=== PATIENT | male | born 1965 | race African-American/Black ===

== ENCOUNTER → 2017-01-26 | Outpatient (CLI) | payer BC, OTHER ==
[~2017-01-26] MED LIST: ASP81TEC PO; CARV12.52 PO; GADOBUTROL 10 MMOL/10 ML (GADAVIST) VIAL IV ONE; LISI10TA PO; METR500T21 PO; PNT40TEC PO; SULF-222 PO; SULF1TAB38 PO
[2017-01-26 17:29] LABS: ALANINE AMINOTRANSFERASE 27 U/L (0-55); ANION GAP 7 MMOL/L (5-14); ASPARTATE AMINO TRANSFERASE 24 U/L (5-34); BILIRUBIN,TOTAL 0.4 MG/DL (0.1-1.0); BLOOD UREA NITROGEN 16 MG/DL (7-18); BUN/CREATININE RATIO 14; CALCIUM 9.2 MG/DL (8.5-10.1); CARBON DIOXIDE 29 MMOL/L (21-32); CHLORIDE 104 MMOL/L (98-107); CREATININE SERUM 1.17 MG/DL (0.60-1.30); GFR ESTIMATED > 60; GLUCOSE 91 MG/DL (70-105); POTASSIUM 4.1 MMOL/L (3.6-5.0); SODIUM 140 MMOL/L (135-145); TOTAL PROTEIN 7.8 GM/DL (6.4-8.2)
--- NOTE | 2017-01-26 18:31 | Diagnostic Imaging Report ---
PROCEDURE: MR imaging abdomen with and without contrast. TECHNIQUE: Multiplanar, multisequence MR imaging of the abdomen was performed with and without contrast. INDICATION: Possible renal mass on recent testing CT scan at an outside clinic in [place]. Patient has Chuck filter in place. FINDINGS: Pre and postcontrast MRI imaging of the abdomen demonstrates a cyst off the superior pole of the left kidney. No solid mass is present. There is no hydronephrosis, ascites or pleural effusions. The liver, spleen, pancreas and adrenal glands appear normal. No abnormal adenopathy is present. Normal signal intensity is seen within the bone marrow. Artifact is present in the IVC from a filter. IMPRESSION: There is a 2.5 x 2.1 cm lesion off of the upper pole of the left kidney which has mainly fluid within this. This has a little bit of inhomogeneity and it is probably proteinaceous cyst. The miguel are slightly irregular. Recommend 6-month followup with CT scan. Dictated by: Dictated on workstation # [id number]
== END ==
LOC: RAD 16:41
PROVIDERS: ATTEND Nurse Practitioner Family
DX: N28.89 Other specified disorders of kidney and ureter (principal)
CPT/HCPCS: 36415; 74183; 80053

== ENCOUNTER 2018-07-16 07:05 | Emergency (ER) | payer BC ==
[~2018-07-16] VITALS: Ht 170.2 cm; Wt 102.1 kg
[~2018-07-16 07:05] MED LIST changes: -GADOBUTROL 10 MMOL/10 ML (GADAVIST) VIAL IV ONE; +METR-145 PO; -METR500T21 PO
--- NOTE | 2018-07-16 08:00 | NUR ---
PT STATES WILL TAKE B/P MEDS WHEN GETS HOME
[2018-07-16] MEDS ORDERED: SULF1TAB35 PO (08:03)
--- NOTE | 2018-07-16 08:03 | ED Integumentary General ---
General Chief Complaint: Skin/Wound Problems Stated Complaint: FINGER LAC Nursing Triage Note: PT STATES FELL LAST PM AND HAS ABRASION ON L 4TH FINGER FROM CEMENT, DENIES HITTING HEAD, STATES HAS KEPT OOZING BLOOD SINCE Source: patient Exam Limitations: no limitations History of Present Illness Date Seen by Provider: Jul 16, 2018 Time Seen by Provider: 07:39 Initial Comments Patient presents to ER by private conveyance ambulating and with chief complaint that he fell last night around midnight and scraped the cuticle on his left hand fourth digit distal phalanx. He couldn't get it stopped bleeding and is continues to ooze she's been using compression and elevation. He is on aspirin but does not take any Eliquis anymore after he got his IVC filter implanted for history of clots. Patient says that his shoulder got hurt in the fall yesterday but does not want to take as he thinks it will heal fine. He denies striking his head or loss of consciousness. He does drink alcohol. The patient is right-handed. Allergies and Home Medications Allergies Coded Allergies: No Known Drug Allergies (Unverified , 08/10/11) Home Medications Aspirin 81 Mg Tabec, 81 MG PO DAILY, (Reported) Carvedilol 12.5 Mg Tablet, 12.5 MG PO BID, (Reported) Lisinopril 10 Mg Tablet, 10 MG PE PO DAILY, (Reported) Pantoprazole Sod 40 Mg Tab, 40 MG PO DAILY, (Reported) Patient Home Medication List Home Medication List Reviewed: Yes Review of Systems Review of Systems Constitutional: No chills, No malaise EENTM: No ear pain, No eye pain Respiratory: No cough, No short of breath Cardiovascular: No chest pain, No edema Gastrointestinal: No abdominal pain, No constipation, No diarrhea Genitourinary: No discharge, No dysuria Musculoskeletal: No back pain, No joint pain Past Tftoaat-Lsfuog-Wjcepr Hx Patient Social History Alcohol Use: Rarely Uses Number of Drinks Today: 2 Alcohol Beverage of Choice: Beer, Whiskey Recreational Drug Use: No Smoking Status: Never a Smoker Recent Foreign Travel: No Contact w/Someone Who Travel: No Recent Infectious Disease Expo: No Recent Hopitalizations: No Immunizations Up To Date Tetanus Booster (TDap): Less than 5yrs Past Medical History Surgeries: Yes (MARTINE FILTER) Respiratory: No Cardiac: Yes Hypertension Gastrointestinal: No Musculoskeletal: Yes (DVT) Endocrine: No Cancer: No Psychosocial: No Physical Exam Vital Signs Vital Signs - First Documented 07/16/18 07:40 Temp 97.4 Pulse 93 Resp 18 B/P (MAP) 145/111 (122) Pulse Ox 96 Capillary Refill : Less Than 3 Seconds General Appearance: WD/WN, no apparent distress HEENT: PERRL/EOMI, normal ENT inspection, pharynx normal Cardiovascular: normal peripheral pulses, regular rate, rhythm, no edema Respiratory: no respiratory distress, no accessory muscle use Extremities: normal capillary refill, other (left hand fourth digit distal phalanx dorsal side has a 1 cm x 1 cm square abrasion where the skin has been scraped off with a slow ooze.) Progress/Results/Core Measures Results/Orders Vital Signs/I&O 07/16/18 07:40 Temp 97.4 Pulse 93 Resp 18 B/P (MAP) 145/111 (122) Pulse Ox 96 Blood Pressure Mean: 122 Progress Progress Note : Time: 07:59 Progress Note Cleaned thoroughly with chlorhexidine soap water and offered a tetanus shot but he's up-to-date. We then put a turnicot on for less than 1 minute and, clean the wound and applied 2 layers of cyanoacrylate. Wound was hemostatic. Departure Impression Primary Impression: Fall Qualified Codes: W19.XXXA - Unspecified fall, initial encounter Additional Impressions: Left shoulder pain Qualified Codes: M25.512 - Pain in left shoulder Abrasion of left ring finger, initial encounter Disposition: 01 HOME, SELF-CARE Condition: Stable Departure-Patient Inst. Decision time for Depature: 08:01 Referrals: NAREN DRAPER MD (PCP/Family) Primary Care Physician Patient Instructions: Skin Abrasions (DC) Add. Discharge Instructions: It's okay to wash your hands or shower today but wait 24-48 hours before you submerse your hands to wash dishes or anything along those lines. You may use the antibiotics for 3 days to prevent infection in your hand. All discharge instructions reviewed with patient and/or family. Voiced understanding. Scripts Sulfamethoxazole/Trimethoprim (Bactrim Ds Tablet) 1 Each Tablet 1 EACH PO BID for 3 Days, #6 TAB 0 Refills Prov: TAMI MERRILL 07/16/18 TAMI MERRILL Jul 16, 2018 08:03
[2018-07-16 08:06] VITALS: BP 145/111
== END 2018-07-16 08:08 | disposition home or self-care (01) ==
LOC: EDUNIT# 07:05 → ER 07:06
DX: S60.415A Abrasion of left ring finger, initial encounter (principal); M25.512 Pain in left shoulder; I10 Essential (primary) hypertension; Z95.828 Presence of other vascular implants and grafts; Z79.82 Long term (current) use of aspirin; Z86.718 Personal history of other venous thrombosis and embolism; W19.XXXA Unspecified fall, initial encounter
CPT/HCPCS: 12041

== ENCOUNTER 2021-12-16 05:46 | Outpatient (CLI) | payer BC ==
[~2021-12-16] VITALS: Ht 170.2 cm; Wt 95.3 kg
[2021-12-16] MEDS ORDERED: MTP25TSR PO (15:30)
[2021-12-16] MEDS ORDERED: LORA10CA PO (15:30)
[2021-12-16] MEDS ORDERED: TADA5TAB2 PO (15:30)
[2021-12-16] MEDS ORDERED: MULT-1056 PO (15:30)
[2021-12-16] MEDS ORDERED: OMG1KC PO (15:30)
== END 2021-12-16 15:36 | disposition home or self-care (01) ==
LOC: PREOP 05:46
PROVIDERS: ATTEND Surgery
DX: Z01.818 Encounter for other preprocedural examination (principal)

== ENCOUNTER 2021-12-29 10:28 | Day surgery (SDC) | payer BC ==
[~2021-12-29] VITALS: Ht 170.2 cm; Wt 95.3 kg
[~2021-12-29 10:28] MED LIST changes: +LORA10CA PO; +MTP25TSR PO; +MULT-1056 PO; +OMG1KC PO; +TADA5TAB2 PO
[2021-12-29] MEDS ORDERED: LACTATED RINGERS 1,000 ML IV STA (10:32)
[2021-12-29 10:40] VITALS: BP 158/97
[2021-12-29] MEDS ORDERED: LACTATED RINGERS 1,000 ML IV ONE (10:43)
[2021-12-29] MEDS ORDERED: HURRICAINE EXT TUBE (BENZOCAINE) XX PRN (10:45)
[2021-12-29] MEDS ORDERED: PROPOFOL INJECTION 50 ML IV ONE (12:35)
--- NOTE | 2021-12-29 13:26 | Discharge Inst-Simple/Standard ---
Discharge Inst-Standard Patient Instructions/Follow Up Plan of Care/Instructions/FU: 2 weeks Timmy Activity as Tolerated: Yes Discharge Diet: Regular Diet FIDENCIO RUIZ DO Dec 29, 2021 13:26
--- NOTE | 2021-12-29 13:28 | Anesthesia-General Post-Op ---
MAC Patient Condition Mental Status/LOC: Same as Preop Cardiovascular: Satisfactory Nausea/Vomiting: Absent Respiratory: Satisfactory Pain: Controlled Complications: Absent Post Op Complications Complications None Follow Up Care/Instructions Patient Instructions None needed. Anesthesiology Discharge Order Discharge Order Patient is doing well, no complaints, stable vital signs, no apparent adverse anesthesia problems. No complications reported per nursing. KENNEY DIGGS CRNA Dec 29, 2021 13:27
[2021-12-29 13:33] VITALS: BP 125/73
[2021-12-29 13:40] VITALS: BP 125/73
[2021-12-29 14:00] VITALS: BP 125/73
--- NOTE | 2021-12-29 21:55 | OPERATIVE REPORT ---
DATE OF SERVICE: 12/29/2021 PREOPERATIVE DIAGNOSES: History of gastric ulcer, screening colonoscopy. POSTOPERATIVE DIAGNOSES: Small hiatal hernia, reflux esophagitis, normal colon. PROCEDURE: EGD with biopsies, colonoscopy. 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 ESTIMATED BLOOD LOSS: None. COMPLICATIONS: None. INDICATIONS: The patient is a 56-year-old male with history of ulcer and also needing screening colonoscopy. He understands risks and benefits of procedure and wishes to proceed. Consent was signed in the chart. DESCRIPTION OF PROCEDURE: The patient was taken to the endoscopy suite, placed in left lateral recumbent position. Timeout was performed. Scope was inserted in mouth, down the esophagus, stomach and into the duodenum without difficulty. No polyps, masses or ulcerations in the duodenum. Scope was slowly retracted back into the stomach where it was further insufflated. No polyps, masses or ulcerations. Biopsy of the antrum was obtained. Scope was retroflexed noting a small hiatal hernia, no other pathology. Scope was returned to its normal position, slowly withdrawn until the distal esophagus, some slight reflux esophagitis. Biopsy of GE junction was obtained. Scope was slowly retracted back until completely removed noting no other pathology. Digital rectal exam was performed. No palpable polyps, masses or ulcerations. Scope was inserted in the rectum and advanced all the way to cecum with minimal difficulty. Prep was adequate. Scope was slowly retracted back. No polyps, masses or ulcerations in the cecum, ascending, transverse, descending, sigmoid colon. Once in the rectum, scope was retroflexed noting no other pathology. Scope was returned to its normal position, slowly withdrawn until completely removed. The patient tolerated procedure well without complications and taken to the recovery room in stable condition. RECOMMENDATIONS: The patient will need repeat colonoscopy in 10 years unless family history of colon cancer or personal history of polyps, which would then be 5 years. The patient to continue on current medications. Any issues before that be seen at that time. He will follow up in the office in two weeks to discuss pathology results and if we need to make any medication changes, we will do so at that time. Job ID: [id number] DocumentID: [id number] Dictated Date: 12/29/2021 13:28:55 Host/Hostess Ground Date: 12/29/2021 21:53:48 Dictated By: FIDENCIO WARNER DO [facility]
== END 2021-12-29 14:18 | disposition home or self-care (01) ==
LOC: ENDO 10:28
PROVIDERS: ATTEND Surgery
DX: Z12.11 Encounter for screening for malignant neoplasm of colon (principal); K21.00 Gastro-esophageal reflux disease with esophagitis, without bleeding; K44.9 Diaphragmatic hernia without obstruction or gangrene; K29.70 Gastritis, unspecified, without bleeding; E66.9 Obesity, unspecified; Z68.32 Body mass index [BMI] 32.0-32.9, adult; Z79.899 Other long term (current) drug therapy; Z79.82 Long term (current) use of aspirin; Z87.11 Personal history of peptic ulcer disease

== ENCOUNTER → 2022-07-26 | Outpatient (CLI) | payer BC ==
--- NOTE | 2022-07-26 17:34 | Diagnostic Imaging Report ---
PROCEDURE: US Scrotum. TECHNIQUE: Multiple real-time grayscale images were obtained over the scrotum in various projections bilaterally. INDICATION: Scrotal mass Right testicle measures 4.6 x 2.1 x 2.6 cm. The testes has normal blood flow and echogenicity. There is a 3 cm cyst within the testes. There are several cysts in the epididymis. Largest of these is in the l head that measures 2.2 cm in diameter. There are some additional epididymal cysts hat measure 1 to 3 mm in diameter. There is no hydrocele or varicocele on the right. Left testicle measures 4.8 x 1.9 x 2.7 cm. There is normal echogenicity and blood flow. There is no varicocele or hydrocele. Epididymis appears normal. IMPRESSION: Several epididymal cysts on the right largest measuring 2.2 cm in diameter. Dictated by: Dictated on workstation # [id number]
== END ==
LOC: RAD 12:01
PROVIDERS: ATTEND Internal Medicine
DX: N50.3 Cyst of epididymis (principal)
CPT/HCPCS: 76870

== ENCOUNTER 2022-10-08 05:31 | Outpatient (CLI) | payer BC ==
[~2022-10-08] VITALS: Ht 170.2 cm; Wt 77.3 kg
[2022-10-08] MEDS ORDERED: HYDR25TA4 PO (09:05)
[2022-10-08] MEDS ORDERED: AMLO-250 PO (09:05)
== END 2022-10-08 10:16 | disposition home or self-care (01) ==
LOC: PREOP 05:31
PROVIDERS: ATTEND Surgery
DX: Z01.818 Encounter for other preprocedural examination (principal)

== ENCOUNTER 2022-10-14 10:44 | Day surgery (SDC) | payer BC ==
[~2022-10-14] VITALS: Ht 170.2 cm; Wt 77.3 kg
[2022-10-14] VITALS (12 sets, daily range): BP systolic 110–128; BP diastolic 63–85
[~2022-10-14 10:44] MED LIST changes: +AMLO-250 PO; +HYDR25TA4 PO
[2022-10-14] MEDS ORDERED: LACTATED RINGERS 1,000 ML IV PRN (11:00)
[2022-10-14] MEDS ORDERED: ceFAZolin INJECTION 2,000 MG in NS (IVPB) 50 ML IV ONE (11:00)
[2022-10-14] MEDS ORDERED: BUP/EPI 0.5% 1:200,000 (SENSORCAINE) 30 ML VIAL ONE (11:04)
[2022-10-14] MEDS ORDERED: fentaNYL INJ 100 MCG/2 ML AMP ONE (11:48)
[2022-10-14] MEDS ORDERED: MIDAZOLAM 2 MG/2 ML (VERSED) VIAL ONE (11:48)
[2022-10-14] MEDS ORDERED: ROCURONIUM 50 MG/5 ML (ZEMURON) VIAL IV ONE (11:50)
--- NOTE | 2022-10-14 11:52 | Progress Note-Pre Operative ---
Pre-Operative Progress Note Date of Available H&P: Oct 14, 2022 Date H&P Reviewed: Oct 14, 2022 Time H&P Reviewed: 11:00 History & Physical: No changes noted Pre-Operative Diagnosis: sx reducible right ing hernia, sx forehead sebaceous cyst x2 LINSEY KNOTT MD Oct 14, 2022 11:52
[2022-10-14] MEDS ORDERED: HYDR-3817 PO (11:55)
--- NOTE | 2022-10-14 11:56 | Discharge Inst-Surgical ---
D/C Lap Instructions-HEDY New, Converted, or Re-Newed RX: RX on Chart Follow Up Appt in 2 weeks Activity as tolerated No driving for 24 hours No driving while on pain medications Incentive Spirometry use every 2 hours while awake Regular Diet Symptoms to Report: Fever over 101 degree F, Nausea/Vomiting Infection Signs and Symptoms to report: Increased redness, Foul odor of wound, Increased drainage Bathing instructions: May shower Operative Area Clean/Dry; Keep incision clean/dry If any problems/questions: Contact your physician or go to Emergency Room LINSEY KNOTT MD Oct 14, 2022 11:56
[2022-10-14] MEDS ORDERED: ONDANSETRON 4 MG/2 ML (SDV) Z0FRAN IVP PRN ×2 (12:00→14:15)
[2022-10-14] MEDS ORDERED: ACETAMINOPHEN 325 MG TABLET PO PRN (12:00)
[2022-10-14] MEDS ORDERED: oxyCODONE/APAP 5/325MG (PERCOCET 5) TABLET PO PRN (12:00)
[2022-10-14] MEDS ORDERED: morphine INJ 10 MG/ML 1ML (SYR OR VIAL) IVP PRN ×2 (12:00)
[2022-10-14] MEDS ORDERED: NEOSTIGMINE (BLOXIVERZ ) 1 MG/1ML 10 ML VIAL ONE (13:42)
[2022-10-14] MEDS ORDERED: GLYCOPYRROLATE 0.2 MG/ML (ROBINUL) 2 ML VIAL ONE (13:42)
[2022-10-14] MEDS ORDERED: SEVOFLURANE (ULTANE) 15 ML INHAL SOLN ONE (13:44)
[2022-10-14] MEDS ORDERED: proPOfol 200 MG/20 ML (DIPRIVAN) VIAL IV ONE (13:44)
--- NOTE | 2022-10-14 13:54 | Progress Note-Post Operative ---
Post-Operative Progess Note Surgeon (s)/Retail Link Analyst (s) Surgeon LINSEY KNOTT MD Retail Link Analyst: eulalia landry [employer] Pre-Operative Diagnosis sx reducible right ing hernia, sx forehead sebaceous cyst x2 Post-Operative Diagnosis small righ indirect inguinal hernia, small umbilical hernia, central forehead sebaceous cyst, right forehead lipoma Procedure & Operative Findings Date of Procedure 10/14/22 Procedure Performed/Findings diagnostic laparoscopy, liver bx, open primary umbilical hernia repair, excision forehead cyst 1cm and 5mm. Anesthesia Type get Estimated Blood Loss Estimated blood loss (mL): minmal Specimens/Packing Specimens Removed liver lesions x6 LINSEY KNOTT MD Oct 14, 2022 13:54
--- NOTE | 2022-10-14 14:02 | Anesthesia-General Post-Op ---
General Patient Condition Mental Status/LOC: Same as Preop Cardiovascular: Satisfactory Nausea/Vomiting: Absent Respiratory: Satisfactory Pain: Controlled Complications: Absent Post Op Complications Complications None Follow Up Care/Instructions Patient Instructions None needed. Anesthesia/Patient Condition Patient Condition Patient is doing well, no complaints, stable vital signs, no apparent adverse anesthesia problems. No complications reported per nursing. KENNEY DIGGS CRNA Oct 14, 2022 14:02
[2022-10-14] MEDS ORDERED: HYDROmorphone 2 MG/ML VIAL (DILAUDID) IV ONE (14:15)
[2022-10-14] MEDS ORDERED: MEPERIDINE (DEMEROL) INJ 50 MG/ML IVP ONE (14:15)
[2022-10-14] MEDS ORDERED: morphine INJ 10 MG/ML 1ML (SYR OR VIAL) IVP ONE (14:15)
[2022-10-14] MEDS ORDERED: fentaNYL INJ 100 MCG/2 ML AMP IVP ONE (14:15)
--- NOTE | 2022-10-14 22:26 | OPERATIVE REPORT ---
DATE OF SERVICE: 10/14/2022 ATTENDING PRIMARY CARE PHYSICIAN: Dr. Bowen Albrecht. PREOPERATIVE DIAGNOSES: Symptomatic reducible right inguinal hernia, umbilical hernia, two forehead cysts. POSTOPERATIVE DIAGNOSES: Small indirect right inguinal hernia, small umbilical hernia. Large liver mass, likely consistent with a primary hepatocellular carcinoma. Central forehead sebaceous cyst 1cm, right lateral forehead lipoma, 5 mm in size. PROCEDURE: Diagnostic laparoscopy, laparoscopic liver biopsy, primary open umbilical hernia repair, excision of central forehead lesion, 1 cm in size; and right forehead lesion, 5 mm in size. SURGEON: Linsey Knott MD MANAGER PERFORMANCE IMPROVEMENT: Alexandro Florez APRN ANESTHESIA: General endotracheal. ESTIMATED BLOOD LOSS: Minimal. FINDINGS: Small indirect right inguinal hernia, small umbilical hernia. Large liver mass, likely consistent with a primary hepatocellular carcinoma. Central forehead sebaceous cyst, right lateral forehead lipoma, 5 mm in size. DISPOSITION: The patient tolerated the procedure well. INDICATIONS: The patient is a 57-year-old male who presented to the office with pain in the right inguinal region. He states that this has been present for the past few months; however, has increased in severity. He was examined in the office and found to have a small right inguinal hernia. He had also mentioned weight loss in the past year; however, states that this was intentional and states that he has been eating healthier with less amount of fat and exercising. He has lost approximately 50 pounds in the past year. The patient also states that he does drink alcohol approximately 6 drinks a day and has been doing this for as long as he could remember. DESCRIPTION OF PROCEDURE: The patient was brought to the operating room, laid supine on the table. After adequate IV pain and sedative medications and general endotracheal intubation, the abdomen was prepped and draped in standard surgical fashion. A 0.5% Marcaine with epinephrine was used to anesthetize the overlying skin in the supraumbilical rim and a crescent-shaped skin incision made using a #15 blade. Through the umbilical hernia, a Veress needle inserted with a low opening pressure of 0 mmHg and the abdomen was insufflated to 15 mmHg pressure. The Veress needle removed and a 10 mm port placed through the umbilical hernia, followed by 45-degree angle laparoscope visualized the peritoneal cavity. A 4-quadrant abdominal exploration was performed. A very large multiseptated liver mass was identified mostly encompassing the entirety of the right lobe of the liver. There was no peritoneal carcinomatosis. The omentum, small bowel and colon appeared normal. A small right indirect inguinal hernia identified. There was no left inguinal hernia component. In lieu of these findings, I scrubbed out and talked to the patient's , stating the concerns for a large liver lesion, which is likely some form of malignancy whether primary hepatocellular versus a metastatic lesion. It was recommended that he proceed with laparoscopic biopsies and to just repair the umbilical hernia due to the placement of the port as well as the removal of the forehead lesions and await the biopsy results and she was in agreeance. A right lateral 5 mm port was placed after the skin and peritoneal lining were anesthetized using 0.5% Marcaine with epinephrine and a transverse skin incision made using a #15 blade. Using an automatic core biopsy tool with a 14-gauge needle, multiple biopsies were taken of the large liver lesion. Good hemostasis was achieved using direct pressure of the biopsy sites. The abdomen was desufflated and we then proceeded with primary repair of the umbilical hernia. Hernia sac was excised using electrocautery. The fascia was then approximated without any tension using interrupted 0 Prolene sutures in a horizontal configuration. Skin was closed using 4-0 Monocryl running subcuticular suture. The umbilicus was filled with tonsil sponges followed by 4 x 4 gauze followed by large Op-Site. The forehead was then prepped and draped in standard surgical fashion. A 0.5% Marcaine with epinephrine was used to anesthetize the overlying skin to both of these lesions. The central lesion was then excised, making a skin incision horizontally using a #15 blade. The benign cystic lesion was identified and the entire capsule was excised using a #15 blade. Good hemostasis was achieved using electrocautery. In a similar manner, the lesion of the right lateral forehead was anesthetized and a skin incision made using a #15 blade. This lesion was dissected out and appeared to be more of a benign lipoma. Both were sent to pathology. The skin was then closed using interrupted 3-0 Prolene sutures. The patient tolerated the procedure well. We will have him do no heavy lifting or exertion for the next 2 weeks. We will start him on IV and oral pain medication as well as a clear liquid diet. Once he is tolerating clears, has good pain control with oral pain medication and ambulating well, we will discharge him home. We will also have him follow up in 1 week once we have the pathology results and also proceed with ordering a CT scan of the chest, abdomen and pelvis. Job ID: [id number] DocumentID: [id number] Dictated Date: 10/14/2022 14:04:13 Instructional Coach Date: 10/14/2022 22:24:00 Dictated By: LINSEY KNOTT MD MTDD
== END 2022-10-14 16:55 | disposition home or self-care (01) ==
LOC: SDC 10:44
PROVIDERS: ATTEND Surgery
DX: K40.90 Unilateral inguinal hernia, without obstruction or gangrene, not specified as recurrent (principal); K42.9 Umbilical hernia without obstruction or gangrene; C7A.8 Other malignant neuroendocrine tumors; L98.8 Other specified disorders of the skin and subcutaneous tissue; L72.0 Epidermal cyst; Z87.891 Personal history of nicotine dependence
CPT/HCPCS: 87081; 88304; 88307; 88341; 88342

== ENCOUNTER → 2022-10-21 | Outpatient (CLI) | payer BC ==
[~2022-10-21] MED LIST changes: +HOLD METFORMIN - RECEIVED CONTRAST 20 ML VIAL IV SCH; +HYDR-3817 PO; +IOHEXOL 350 MG/ML 100 ML (OMNIPAQUE 350) VIAL IV ONE; +NS 100 ML (IVPB) BAG IV ONE
--- NOTE | 2022-10-21 10:26 | Diagnostic Imaging Report ---
PROCEDURE: CT chest with contrast, CT abdomen and pelvis with and without contrast. TECHNIQUE: Pre and post intravenous contrast axial imaging of the abdomen and pelvis and post contrast axial imaging of the chest were performed. Auto Exposure Controls were utilized during the CT exam to meet ALARA standards for radiation dose reduction. INDICATION: A liver mass noted during hernia repair surgery. Study is performed for further evaluation. CT CHEST: There is a soft tissue mass in anterior mediastinum measuring 6.4 x 4.2 cm. No hilar lymphadenopathy is identified. No other mediastinal disease is detected. There is no axillary lymphadenopathy. No pericardial or pleural fluid is identified. Imaging through lung shahid does show elevation right hemidiaphragm with subsegmental atelectasis in the right lower lobe. No pulmonary masses are identified. CT abdomen and pelvis: Marked abnormal appearance the liver is noted. Nearly the entire right lobe of the liver is replaced by solid multifocal mass. Cephalocaudal extent is approximately 30 cm. Transverse dimension approximately 17 cm and the AP dimension is approximately 18 cm. There is a large cyst the left lobe of liver as well. There are several solid lesions in the left lobe of the liver as well. Gallbladder is unremarkable. There is no biliary duct dilatation. There does appear to be an enlarged lymph node in the jarrett hepatis adjacent to the pancreatic head measuring 3.1 cm. Pancreas and spleen are unremarkable. No definite adrenal mass is identified. Kidneys are unremarkable. There is a solid nodule just lateral to the right kidney measuring 2.7 cm. Aorta is calcified but nonaneurysmal. There is a filter in the inferior vena cava. No definite central retroperitoneal lymphadenopathy is identified. Bowel loops are normal caliber. There is some trace free fluid in the pelvis. Bladder is decompressed. Prostate is unremarkable. No definite iliac or inguinal lymphadenopathy is detected. Bony structures do show a sclerotic lesion involving the right aspect of the L4 vertebral body. Osseous metastasis cannot be entirely excluded. IMPRESSION: 1. Marked hepatomegaly. Nearly the entire right lobe of the liver is replaced by multifocal solid masses. There is also a large mass in the left lobe liver and findings are consistent with hepatic metastatic disease. There does appear to be periportal lymphadenopathy as well as a solid nodule lateral to the right kidney consistent with metastases. There is a large anterior mediastinal mass as well which is likely neoplastic. The exact primary sided neoplasm is indeterminate. L4 sclerotic lesion is noted and osseous metastatic lesion cannot be excluded. Dictated by: Dictated on workstation # [id number]
== END ==
LOC: RAD 08:12
PROVIDERS: ATTEND Surgery
DX: R16.0 Hepatomegaly, not elsewhere classified (principal); C79.01 Secondary malignant neoplasm of right kidney and renal pelvis; R59.1 Generalized enlarged lymph nodes; J98.59 Other diseases of mediastinum, not elsewhere classified
CPT/HCPCS: 71260; 74178

== ENCOUNTER 2022-10-25 13:20 | Outpatient (CLI) | payer BC ==
[~2022-10-25] VITALS: Ht 170 cm; Wt 73.6 kg
[~2022-10-25 13:20] MED LIST changes: -HOLD METFORMIN - RECEIVED CONTRAST 20 ML VIAL IV SCH; -IOHEXOL 350 MG/ML 100 ML (OMNIPAQUE 350) VIAL IV ONE; -NS 100 ML (IVPB) BAG IV ONE
== END 2022-10-25 16:49 | disposition home or self-care (01) ==
LOC: PREOP 13:20
PROVIDERS: ATTEND Surgery
DX: Z01.818 Encounter for other preprocedural examination (principal)

== ENCOUNTER 2022-10-26 11:29 | Day surgery (SDC) | payer BC ==
[~2022-10-26] VITALS: Ht 170 cm; Wt 73.6 kg
[2022-10-26] VITALS (8 sets, daily range): BP systolic 105–120; BP diastolic 73–87
--- NOTE | 2022-10-26 09:30 | HISTORY AND PHYSICAL ---
DATE OF SERVICE: 10/26/2022 ATTENDING PRIMARY CARE PHYSICIAN: Dr. Bowen Albrecht and Dr. Deangelo Joyner. HISTORY OF PRESENT ILLNESS: The patient is a 57-year-old male who presented initially to our office with pain in the right inguinal region. He states that this had been present for a few months; however, had increased in severity. He was examined in the office and found to have a small right inguinal hernia. He did also mention weight loss in the past year; however, states that this was intentional and reports that he was eating healthier with less amounts of fats and sugars as well as exercising. He reports losing approximately 50 pounds in the past year. He also reports that he drinks around 6 alcoholic beverages a day, which usually consist of 4 shots of whiskey and 1 to 2 beers. He reports that he has done this for as long as he can remember. On 10/14/2022, he was scheduled to initially undergo a laparoscopic right inguinal hernia repair; however, this was converted to a diagnostic laparoscopy with a laparoscopic liver biopsy and a primary open umbilical hernia repair, excision of central forehead lesion 1 cm in size and right forehead lesion, 5 mm in size. He was found to have a small indirect right inguinal hernia as well as a small umbilical hernia. There was a large liver mass that was highly suspicious for a primary hepatocellular carcinoma. There was a central forehead sebaceous cyst and a right forehead lipoma that was 5 mm in size. He tolerated the procedure well and was later discharged home. He was then scheduled for a CT scan of the chest, abdomen and pelvis and was found to have marked hepatomegaly as well as nearly entire right lobe of the liver replaced by multifocal solid masses. There was a large mass of the left lobe of the liver and findings were consistent with hepatic metastatic disease. There also appeared to be periportal lymphadenopathy as well as a solid nodule lateral to the right kidney consistent with metastasis. There was a large anterior mediastinal mass that was likely neoplastic. There was a L4 sclerotic lesion noted and osseous metastatic lesion, which could not be excluded. The exact primary neoplasm was indeterminate. Biopsies of the liver did come back consistent with high-grade carcinoma with neuroendocrine features. The central forehead was consistent with a lipoma and the right forehead was consistent with a ruptured epidermal cyst. He was seen postoperatively and these findings and results were discussed with the patient and his . He was referred to Oncology for further evaluation and management. It was then recommended by Oncology to proceed with chemotherapy and thus he will need a Groshong implantable port, which we will schedule. MEDICAL HISTORY: Hypertension, gastroesophageal reflux disease, DVTs, meningitis in 2009, metastatic carcinoma. SURGICAL HISTORY: Placement of IVC filter in 2008. ALLERGIES: LISINOPRIL. MEDICATIONS: Fish oil 1000 mg b.i.d., multivitamin, aspirin 81 mg daily, tadalafil 5 mg daily as needed, Protonix 40 mg daily, hydrochlorothiazide 25 mg daily, metoprolol succinate ER 25 mg daily, amlodipine 5 mg daily. SOCIAL HISTORY: Previous for tobacco smoke one-fourth pack per day for 1 year, quit in 1993. Previous for chewing tobacco for 5 years, quit in 2009. Daily for alcohol, 4 shots of whiskey and 1-2 beers for several years. FAMILY HISTORY: Siblings, some form of cancer. Father, stroke, hypertension. VITAL SIGNS: Blood pressure is 111/74. Current weight is 170.9 pounds at 5 feet 7 inches. REVIEW OF SYSTEMS: This is a well-nourished male in no acute distress. He is not experiencing any shortness of breath or difficulty breathing. No chest pain, palpitations or diaphoresis. No nausea, vomiting or abdominal pain. No diarrhea or constipation. No red blood per rectum. No dark tarry stools. No fever or chills. He does report approximately 50-pound weight loss in the past year and reports that he was intentionally trying to lose weight through diet and exercise. All other review of systems negative. PHYSICAL EXAM: CHEST: Clear. Good breath sounds bilaterally. HEART: Regular, no murmurs. EXTREMITIES: No lower extremity edema. Negative Homans sign. HEENT: No scleral icterus. No cervical lymphadenopathy. ABDOMEN: Soft, nontender, nondistended. There is a large palpable lesion on the upper abdomen as well as right side abdomen, most likely consistent with the liver mass and hepatomegaly. SKIN: Warm, dry and pink with two well healing incisions of the forehead as well as abdominal incisions that are clean, dry, and intact with no signs of infection. NEUROLOGIC: Awake, alert and oriented x3. ASSESSMENT AND PLAN: A 57-year-old male with metastatic high-grade carcinoma with neuroendocrine features with masses identified of the liver, one of the mediastinum, one of the right lateral kidney as well as one of the L4 spinal region. At this time, he will need to undergo chemotherapy and will does need placement of a Groshong implantable port. The risks and benefits of the procedure as well as the procedure and home care instructions were explained to the patient. He verbalized understanding of instructions and agrees to proceed as planned. At this time, we will proceed with scheduling him for placement of a Groshong implantable port. Job ID: [id number] DocumentID: [id number] Dictated Date: 10/26/2022 08:20:51 Ssrs Report Developer Date: 10/26/2022 09:27:00 Dictated By: LAMONTE FOY APRN
[2022-10-26] MEDS ORDERED: LACTATED RINGERS 1,000 ML IV PRN (11:45)
[2022-10-26] MEDS ORDERED: ceFAZolin INJECTION 2,000 MG in NS (IVPB) 50 ML IV ONE (11:45)
--- NOTE | 2022-10-26 11:53 | Progress Note-Pre Operative ---
Pre-Operative Progress Note Date of Available H&P: Oct 26, 2022 Date H&P Reviewed: Oct 26, 2022 Time H&P Reviewed: 11:30 History & Physical: No changes noted Pre-Operative Diagnosis: metastatic neuroendocrine tumor LINSEY KNOTT MD Oct 26, 2022 11:53
--- NOTE | 2022-10-26 11:55 | Discharge Inst-Surgical ---
D/C Lap Instructions-HEDY Follow Up PRN Activity as tolerated May access and use port at any time. Regular Diet Symptoms to Report: Fever over 101 degree F, Nausea/Vomiting Infection Signs and Symptoms to report: Increased redness, Foul odor of wound, Increased drainage Bathing instructions: May shower Operative Area Clean/Dry; Keep incision clean/dry If any problems/questions: Contact your physician or go to Emergency Room LINSEY KNOTT MD Oct 26, 2022 11:55
[2022-10-26] MEDS ORDERED: LIDOCAINE/EPI 1%-1:100,000 (XYLOCAINE) 20ML ONE (11:58)
[2022-10-26] MEDS ORDERED: HEParin (CENTRAL IV FLUSH) 500 UNIT/5 ML SYR ONE (11:58)
[2022-10-26] MEDS ORDERED: 0.9% SODIUM CHLORIDE PF INJ 20 ML VIAL ONE (11:58)
[2022-10-26] MEDS ORDERED: morphine INJ 10 MG/ML 1ML (SYR OR VIAL) IVP PRN ×2 (12:00)
[2022-10-26] MEDS ORDERED: ONDANSETRON 4 MG/2 ML (SDV) Z0FRAN IVP PRN ×2 (12:00→13:30)
[2022-10-26] MEDS ORDERED: ACETAMINOPHEN 325 MG TABLET PO PRN (12:00)
[2022-10-26] MEDS ORDERED: oxyCODONE/APAP 5/325MG (PERCOCET 5) TABLET PO PRN (12:00)
[2022-10-26] MEDS ORDERED: MIDAZOLAM 2 MG/2 ML (VERSED) VIAL ONE (12:31)
[2022-10-26] MEDS ORDERED: LIDOCAINE/EPI 1%-1:100,000 (XYLOCAINE) 20ML INJ ONE (12:47)
[2022-10-26] MEDS ORDERED: HEParin (CENTRAL IV FLUSH) 500 UNIT/5 ML SYR IV ONE (12:48)
[2022-10-26] MEDS ORDERED: 0.9% SODIUM CHLORIDE PF INJ 20 ML VIAL IV ONE (12:49)
[2022-10-26] MEDS ORDERED: PROPOFOL INJECTION 50 ML IV ONE (13:07)
--- NOTE | 2022-10-26 13:09 | Progress Note-Post Operative ---
Post-Operative Progess Note Surgeon (s)/Coagulator (s) Surgeon LINSEY KNOTT MD Coagulator: none Pre-Operative Diagnosis metastatic neuroendocrine tumor Post-Operative Diagnosis same Procedure & Operative Findings Date of Procedure 10/26/22 Procedure Performed/Findings placement left groshong implantable catheter. Anesthesia Type mac with local Estimated Blood Loss Estimated blood loss (mL): minimal Specimens/Packing Specimens Removed none LINSEY KNOTT MD Oct 26, 2022 13:09
--- NOTE | 2022-10-26 13:16 | Anesthesia-General Post-Op ---
MAC Patient Condition Mental Status/LOC: Same as Preop Cardiovascular: Satisfactory Nausea/Vomiting: Absent Respiratory: Satisfactory Pain: Controlled Complications: Absent Post Op Complications Complications None Follow Up Care/Instructions Patient Instructions None needed. Anesthesiology Discharge Order Discharge Order Patient is doing well, no complaints, stable vital signs, no apparent adverse anesthesia problems. No complications reported per nursing. KRISTYN ROQUE CRNA Oct 26, 2022 13:16
[2022-10-26] MEDS ORDERED: morphine INJ 10 MG/ML 1ML (SYR OR VIAL) IVP ONE (13:30)
--- NOTE | 2022-10-26 16:55 | Diagnostic Imaging Report ---
EXAMINATION: Chest, 1 view. HISTORY: Port placement. COMPARISON: None available. FINDINGS: Left subclavian port catheter tip is in the superior vena cava. There is a right lung base opacity. No pneumothorax. An abnormal contour at the AP window may represent a mediastinal mass. IMPRESSION: 1. Right lung base opacity, favored to represent atelectasis. 2. Abnormal contour of the AP window, favored to represent a mediastinal mass. Dictated by: Dictated on workstation # [id number]
--- NOTE | 2022-10-26 18:32 | Diagnostic Imaging Report ---
INDICATION: Port-A-Cath placement Intraoperative view obtained with a portable intensifier in surgery during Port-A-Cath placement. 5.8 seconds of fluoroscopy time was used. 0.65 mGy of exposure. Single view demonstrates Port-A-Cath catheter from left subclavian vein approach, tip not well seen but appears to be over the right atrium. Study is otherwise limited. IMPRESSION: Intraoperative view demonstrates Port-A-Cath placement as above. Dictated by: Dictated on workstation # [id number]
--- NOTE | 2022-10-26 20:12 | OPERATIVE REPORT ---
DATE OF SERVICE: 10/26/2022 ATTENDING PRIMARY CARE PHYSICIAN: Dr. Bowen Albrecht. PREOPERATIVE DIAGNOSIS: Metastatic neuroendocrine tumor. POSTOPERATIVE DIAGNOSIS: Metastatic neuroendocrine tumor. PROCEDURE: Placement of left subclavian Groshong implantable catheter under fluoroscopy. SURGEON: Linsey Knott MD ANESTHESIA: Monitored anesthesia care with local. ESTIMATED BLOOD LOSS: Minimal. FINDINGS: Catheter tip at superior vena cava -- right atrial junction. DISPOSITION: The patient tolerated the procedure well. INDICATIONS: The patient is a 57-year-old male who initially presented to the office with right inguinal pain and was found to have a small reducible inguinal hernia. He had also mentioned weight loss; however, states that this was intentional in that he was eating healthier with less amount of fats and sugars and was exercising and lost approximately 50 pounds in the past year. He does drinks 6 alcoholic beverages on a daily basis. On 10/14/2022, he was scheduled to undergo a laparoscopic right inguinal hernia repair; however, this was converted to a diagnostic laparoscopy with laparoscopic liver biopsy and primary open umbilical hernia repair. The liver lesions were large and multifocal. The pathology report came back consistent with high-grade neuroendocrine tumor and CT scan did show widespread liver disease as well as in other locations. He was seen by Oncology with recommendation was to proceed with urgent chemotherapy. DESCRIPTION OF PROCEDURE: The patient was brought to the operating room, laid supine on the table. After adequate IV pain and sedative medications and monitored anesthesia care, the chest and neck were prepped and draped in standard surgical fashion. A 1% lidocaine with epinephrine was used to anesthetize the overlying skin in the left subclavian region and the left subclavian vein was cannulated with drawing of venous blood. The guidewire was then inserted under fluoroscopy. Cannulating needle removed and a skin incision made using a #15 blade. Dilator and sheath were then placed over the guidewire. The dilator and guidewire were then removed and the Groshong catheter was placed through the sheath until the catheter tip was at the superior vena cava -- right atrial junction. The sheath was then removed. The inner wire within the catheter was then removed. The catheter cut down to size and a port placed onto the catheter. The chest reservoir was then created by extending the skin incision laterally using a #15 blade and a plane created between the subcutaneous fat and the anterior pectoralis fascia using blunt dissection as well as electrocautery. The port was then placed into the chest reservoir and sutured to the anterior pectoralis fascia using interrupted 3-0 Vicryl sutures. Subcutaneous tissue was then reapproximated with the same suture in an interrupted manner and the skin was closed using 4-0 Monocryl running subcuticular suture. Wound was then cleaned and covered with Dermabond. The port was accessed with a noncoring Ritchie needle and venous blood drawn and heparinized saline pushed in without any resistance. The patient tolerated the procedure well. We will get a post-procedure chest x-ray and once confirmation of placement, the port may be accessed and used at any time. Job ID: [id number] DocumentID: [id number] Dictated Date: 10/26/2022 13:14:27 Welder Gun Date: 10/26/2022 20:10:00 Dictated By: LINSEY KNOTT MD
== END 2022-10-26 14:25 | disposition home or self-care (01) ==
LOC: SDC 11:29
PROVIDERS: ATTEND Surgery
DX: C7B.8 Other secondary neuroendocrine tumors (principal); C7A.8 Other malignant neuroendocrine tumors; R16.0 Hepatomegaly, not elsewhere classified; J98.59 Other diseases of mediastinum, not elsewhere classified; N28.89 Other specified disorders of kidney and ureter; M48.8X6 Other specified spondylopathies, lumbar region; Z87.891 Personal history of nicotine dependence; Z98.890 Other specified postprocedural states
CPT/HCPCS: 36561; 71045; 76000; 87081; C1788

== ENCOUNTER 2022-12-07 12:14 | Emergency (ER) | payer BC ==
[~2022-12-07] VITALS: Ht 170 cm; Wt 72.5 kg
[2022-12-07] MEDS ORDERED: NS IV 1000 ML 1,000 ML IV STA (12:42)
--- NOTE | 2022-12-07 12:50 | ED General ---
General Chief Complaint: Cardiac/General Problems Stated Complaint: RAPID PULSE Nursing Triage Note: PT AMB TO [facility] 4 FROM [facility] FOR C/O INCREASED HR BEFORE CHEMO. PT STATES HIS HR WAS 130 Source of Information: Patient Exam Limitations: No Limitations History of Present Illness Date Seen by Provider: Dec 07, 2022 Time Seen by Provider: 12:36 Initial Comments Here from [facility] with report of high heart rate. Apparently he had a heart rate that was around 130 at the [facility] and they were concerned. He was due to get his chemo for ductal carcinoma in the liver today. He gets this every 3 weeks and last had it 3 weeks ago. They have held until next week due to the heart rate issues. He states that he believes he has been eating and drinking okay but has had difficulty due to a sore in his mouth on the right side and the [facility] center did give him medicines for that. They apparently did draw labs which we will try to get the results of. Patient denies chest pain, breathing problems or significant increased pain other than the mild sore. Denies dysuria or diarrhea and reports that he believes he is having an appropriate amount of bowel movements. States that his heart rate will sometimes get higher. Timing/Duration: 1 Hour, Intermittent Severity: Mild Associated Systoms: No Chest Pain, No Cough, No Fever/Chills, No Nausea/Vomiting, No Shortness of Air, No Weakness Allergies and Home Medications Allergies Coded Allergies: lisinopril (Verified Allergy, Unknown, Angioedema, 10/25/22) Patient Home Medication List Home Medication List Reviewed: Yes Amlodipine Besylate (Amlodipine Besylate) 5 Mg Tablet, 5 MG PO DAILY, (Reported) Entered as Reported by: Norma Gonzalez on 10/08/22904 Aspirin (Aspirin Ec 81 Mg) 81 Mg Tabec, 81 MG PO DAILY, (Reported) Entered as Reported by: BENNETT BULL on 08/10/11425 Carvedilol (Coreg) 12.5 Mg Tablet, 12.5 MG PO BID, (Reported) Entered as Reported by: BENNETT BULL on 08/10/11425 Hydrochlorothiazide (Hydrochlorothiazide) 25 Mg Tablet, 25 MG PO DAILY, (Reported) Entered as Reported by: Norma Gonzalez on 10/08/22904 Hydrocodone/Acetaminophen (Hydrocodone-Acetamin 7.5-325) 7.5 Mg-325 Mg Tablet, 1 EACH PO Q4H PRN for PAIN-BREAKTHROUGH Prescribed by: LINSEY KNOTT on 10/14/22 1155 Loratadine (Claritin) 10 Mg Capsule, 10 MG PO DAILY, (Reported) Entered as Reported by: SHARDA MANN on 12/16/21 153 Metoprolol Succinate (Metoprolol Succinate) 25 Mg Tab.er.24h, 25 MG PO DAILY, (Reported) Entered as Reported by: SHARDA MANN on 12/16/211529 Multivit-Min/FA/Lycopen/Lutein (Men 50 Plus Multivitamin Tab) 300 Mcg-600 Mcg- 300 Mcg Tablet, 1 EACH PO DAILY, (Reported) Entered as Reported by: SHARDA MANN on 12/16/211529 [place] 3 Polyunsat Fatty Acids (Fish Oil 1,000 mg Capsule) 340 Mg-1,000 Mg Cap, 1,000 MG PO DAILY, (Reported) Entered as Reported by: SHARDA MANN on 12/16/211529 Pantoprazole Sod (Protonix Tab) 40 Mg Tab, 40 MG PO DAILY, (Reported) Entered as Reported by: BENNETT BULL on 08/10/11 0426 Tadalafil (Cialis) 5 Mg Tablet, 5 MG PO PRN, (Reported) Entered as Reported by: SHARDA MANN on 12/16/211529 Review of Systems Review of Systems Constitutional: see HPI; No chills, No fever EENTM: mouth pain; No nose congestion Respiratory: No cough, No short of breath Cardiovascular: No chest pain, No palpitations Gastrointestinal: No nausea, No vomiting Genitourinary: no symptoms reported Musculoskeletal: no symptoms reported Skin: no symptoms reported Past Lltwhve-Ehphzm-Toevlc Hx Patient Social History Tobacco Use?: No Substance use?: No Alcohol Use?: No Pt feels they are or have been: No Immunizations Up To Date Tetanus Booster (TDap): Unknown First/Initial COVID19 Vaccinat: 2020 Second COVID19 Vaccination Isidro: 2020 Third COVID19 Vaccination Date: 2020 Seasonal Allergies Seasonal Allergies: Yes Past Medical History Surgery/Hospitalization HX: LIVER CANCER, HTN, GERD Surgeries: Yes (MARTINE FILTER, COLONOSCOPY, CYST REMOVED) Adenoidectomy, Tonsillectomy Respiratory: Yes Sleep Apnea Currently Using CPAP: No Currently Using BIPAP: No Cardiac: Yes Deep Vein Thrombosis, High Cholesterol, Hypertension Neurological: Yes Meningitis Sexually Transmitted Disease: No Genitourinary: No Gastrointestinal: Yes (HX OF BLEEDING ULCER) Gastroesophageal Reflux, Gastrointestinal Bleed, Ulcer Musculoskeletal: Yes Fractures Endocrine: No HEENT: Yes Tonsilitis Loss of Vision: Denies Hearing Impairment: Denies Cancer: Yes (NEW DX OF LIVER CANCER) Liver Psychosocial: No Integumentary: Yes (FACIAL SKIN CHANGING COLORS) Eczema Blood Disorders: No Adverse Reaction/Blood Tranf: No Family Medical History Reviewed Nursing Family Hx Physical Exam Vital Signs Vital Signs - First Documented 12/07/22 12:21 Temp 37.5 Pulse 108 Resp 14 B/P (MAP) 116/80 (92) Pulse Ox 98 O2 Delivery Room Air Capillary Refill : Height, Weight, BMI Height: 5'7.00" Weight: 225lbs. oz. 102.091909mv; 25.00 BMI Method:Stated General Appearance: No Apparent Distress, WD/WN HEENT: PERRL/EOMI, Pharynx Normal, Other (There is a small lesion on the inner aspect of the gums along the rear teeth that is nonbleeding but does look slightly irritated.) Neck: Non Tender, Supple Respiratory: Lungs Clear, Normal Breath Sounds Cardiovascular: No Murmur, Tachycardia Gastrointestinal: Non Tender, Soft, Mass (Right middle and upper and along the upper abdomen) Extremity: Normal Range of Motion, Non Tender, No Calf Tenderness, No Pedal Edema Neurologic/Psychiatric: Alert, Oriented x3 Progress/Results/Core Measures Suspected Sepsis SIRS Temperature: Pulse: 108 Respiratory Rate: 14 Blood Pressure 116 /80 Mean: 92 Results/Orders Lab Results Laboratory Tests Test 12/07/22 13:03 Range/Units Troponin I < 0.028 <0.028 NG/ML My Orders Orders - CORIN LANIER MD Troponin I [place] (12/07/22 12:42) Ekg Tracing (12/07/22 12:42) Chest 1 View, Ap/Pa Only (12/07/22 12:42) Ns Iv 1000 Ml (Sodium Chloride 0.9%) (12/07/22 12:42) Vital Signs/I&O 12/07/22 12:21 Temp 37.5 Pulse 108 Resp 14 B/P (MAP) 116/80 (92) Pulse Ox 98 O2 Delivery Room Air Capillary Refill : Blood Pressure Mean: 92 Progress Note : Progress Note Seen and evaluated. Patient has his port access from the cancer center. We will initiate normal saline 1 L bolus. We will check troponin and we will get labs from the cancer center. EKG and chest x-ray ordered. I did talk with Dr. Loredo, patient's oncologist and he agrees with this plan of care and agrees with IV fluid. Monitor patient. Differential diagnosis includes cardiac arrhythmia, dehydration, electrolyte abnormality 1425: Chest x-ray reviewed by me shows elevated right hemidiaphragm but no infiltrate on my interpretation. Radiology report noted. I did do historical record review and note that his heart rate is always between 98 and 120 on all v isits over the last 2 years. Troponin is negative. EKG nonconcerning. I did discuss all of this with the patient. Patient and family are agreeable to discharge home and will follow-up with Dr. Loredo. Discharged home with return precautions. Patient and family verbalized understanding of instructions and agreement with plan. ECG Initial ECG Impression Date: Dec 07, 2022 Initial ECG Impression Time: 12:59 Initial ECG Rate: 98 Initial ECG Rhythm: S.Tach Comment Sinus tachycardia at rate of 98 with normal axis. No evidence of ST elevation NH. Interpreted by me. Diagnostic Imaging Diagonstic Imaging: Xray Plain Films/CT/US/NM/MRI: chest Comments [facility] [place], [place] NAME: ISIDORO PALMER [facility] REC#: [id number] PT STATUS: REG ER : 1965 PHYSICIAN: CORIN LANIER MD ADMIT DATE: 12/07/22/ER Draft Date of Exam:12/07/22 CHEST 1 VIEW, AP/PA ONLY INDICATION: Tachycardia. COMPARISON: 10/26/2022. TECHNIQUE: Single radiograph of the chest dated 12/07/2022. FINDINGS: Left-sided Port-A-Cath is again identified and stable. The cardiac silhouette is within normal limits in size. No significant pulmonary vascular congestion. Elevation of the right hemidiaphragm with associated right basilar opacities, appearing similar to the prior examination. No significant pleural effusion. No pneumothorax. No acute osseous abnormality. IMPRESSION: Persistent right basilar scarring and/or atelectasis with associated elevation of the right hemidiaphragm. Previously noted mediastinal mass is not as well visualized on this examination as better demonstrated on recent CT of the chest. Dictated on workstation # [id number] Dict: 12/07/22 1311 Trans: 12/07/22 1318 [id number] Interpreted by: CHAPARRITA RAMON MD Electronically signed by: Departure Impression Primary Impression: Tachycardia Disposition: 01 HOME, SELF-CARE Condition: Improved Departure-Patient Inst. Decision time for Depature: 14:24 Referrals: TASHIA TERRELL MD (PCP/Family) Primary Care Physician Patient Instructions: Tachycardia (DC) Add. Discharge Instructions: All discharge instructions reviewed with patient and/or family. Voiced understanding. Continue home medications as previously prescribed. Drink plenty of fluids. Follow-up with Dr. Viramontes office for recheck and further evaluation. Return for chest pain, breathing problems, weakness, fever, vomiting, sweating or other concerns as needed. Copy Copies To 1: SONIA COLEMAN TIMOTHY D MD Dec 07, 2022 12:50
--- NOTE | 2022-12-07 13:18 | Diagnostic Imaging Report ---
INDICATION: Tachycardia. COMPARISON: 10/26/2022. TECHNIQUE: Single radiograph of the chest dated 12/07/2022. FINDINGS: Left-sided Port-A-Cath is again identified and stable. The cardiac silhouette is within normal limits in size. No significant pulmonary vascular congestion. Elevation of the right hemidiaphragm with associated right basilar opacities, appearing similar to the prior examination. No significant pleural effusion. No pneumothorax. No acute osseous abnormality. IMPRESSION: Persistent right basilar scarring and/or atelectasis with associated elevation of the right hemidiaphragm. Previously noted mediastinal mass is not as well visualized on this examination as better demonstrated on recent CT of the chest. Dictated by: Dictated on workstation # [id number]
[2022-12-07 14:35] VITALS: BP 114/70
== END 2022-12-07 14:36 | disposition home or self-care (01) ==
LOC: EDUNIT# 12:14 → ER 12:15
DX: R00.0 Tachycardia, unspecified (principal); C22.8 Malignant neoplasm of liver, primary, unspecified as to type
CPT/HCPCS: 36415; 36556; 71045; 84484; 93005

== ENCOUNTER → 2022-12-31 | Outpatient (CLI) | payer BC ==
--- NOTE | 2022-12-31 17:16 | Diagnostic Imaging Report ---
INDICATION: Metastatic neuroendocrine tumor. TECHNIQUE: After intravenous administration of 27 mCi technetium-99m MDP, patient underwent 3-hour incubation. Scintigraphic imaging was then performed from head to toe. FINDINGS: There is a normal biodistribution of activity throughout the skeleton. There is diffuse abnormal increased uptake throughout the sixth rib on the right. There is also diffuse uptake within the manubrium and sternum. Given the diffuse nature, this is nonspecific but could be related to widespread osseous metastatic disease. There is focal increased uptake in the proximal humeri, greater on the right. There is a large amount of abnormal increased uptake within the right iliac bone with smaller focus in the left iliac bone. Localized uptake is also seen in the L4 vertebral body. Uptake in the hip joints may be related to degenerative change with similar uptake in the knees and right ankle. IMPRESSION: Findings are most suggestive of metastatic disease involving right sixth rib as well as pelvis, greater on the right, and in the proximal humeri, most pronounced on the right. Focal uptake at L4 is also suspicious for metastatic disease. There is activity excreted from the kidneys with accumulation in the bladder. Dictated by: Dictated on workstation # [id number]
== END ==
LOC: CARD 09:39
PROVIDERS: ATTEND Nurse Practitioner Adult Health
DX: Z51.11 Encounter for antineoplastic chemotherapy (principal); Z51.12 Encounter for antineoplastic immunotherapy; C7A.8 Other malignant neuroendocrine tumors; C79.51 Secondary malignant neoplasm of bone; C78.7 Secondary malignant neoplasm of liver and intrahepatic bile duct; N19 Unspecified kidney failure
CPT/HCPCS: 78306; A9503